=== PATIENT | male | born 1935 | race Caucasian/White ===

== ENCOUNTER 2017-08-11 10:02 | Emergency (ER) | payer MEDICARE ==
[~2017-08-11] VITALS: Ht 175.3 cm; Wt 69.0 kg
[2017-08-11 10:07] VITALS: BP 159/70; PULSE 74; RESP 18; TEMP 98; O2SAT 96
[2017-08-11] MEDS ORDERED: BACT800T5 PO (11:06)
[2017-08-11] MEDS ORDERED: CEPH-460 PO (11:06)
--- NOTE | 2017-08-11 11:07 | PD ---
HPI Chief Complaint: Skin Problem Time Seen by Provider: 10:50 Travel History International Travel<30 days: No Contact w/Intl Traveler<30days: No Traveled to known affect area: No History of Present Illness HPI This is a 81-year-old male with possible wound infection to the right lower extremity. He reports 1 week ago while working in the yard he cut his leg on a branch. He has been providing local wound care to the area. Yesterday he noticed the area had become erythematous and warm. He denies fever chills. No drainage from the site. Symptom severity is mild to moderate. No aggravating or alleviating factors. PFSH Past Medical History Medical History: Denies Significant Hx Respiratory: Yes (WHEEZING) Tetanus Vaccination: Unknown Past Surgical History Surgical History: No Previous Surgery Social History Alcohol Use: Yes (2-3 WINE DAILY) Tobacco Use: No Substance Use: No Allergies-Medications (Allergen,Severity, Reaction): Coded Allergies: No Known Allergies (Unverified , 08/11/17) Reported Meds & Prescriptions Reported Meds & Active Scripts Active No Active Prescriptions or Reported Medications Review of Systems Except as stated in HPI: all other systems reviewed are Neg General / Constitutional: No: Fever Eyes: No: Visual changes HENT: No: Headaches Cardiovascular: No: Chest Pain or Discomfort Respiratory: No: Shortness of Breath Gastrointestinal: No: Abdominal Pain Genitourinary: No: Dysuria Physical Exam Narrative GENERAL: Alert and well-appearing 81-year-old male SKIN: V-shaped flap laceration to the right lower extremity measuring approximately 3 CM. Scab is in place. No drainage. No fluctuance or induration. There is surrounding erythema consistent with cellulitis. HEAD: Normocephalic. EYES: No injection or drainage. NECK: Supple, trachea midline. CARDIOVASCULAR: Regular rate and rhythm RESPIRATORY: Breath sounds equal bilaterally. No accessory muscle use. GASTROINTESTINAL: Abdomen soft, non-tender, nondistended. MUSCULOSKELETAL: No cyanosis, or edema. See skin note above Data Data Last Documented VS Vital Signs Date Time Temp Pulse Resp B/P (MAP) Pulse Ox O2 Delivery O2 Flow Rate FiO2 08/11/17 10:07 98.0 74 18 159/70 (99) 96 MDM Medical Decision Making Medical Screen Exam Complete: Yes Emergency Medical Condition: Yes Interpretation(s) Afebrile. No tachycardia. Differential Diagnosis Cellulitis, abscess, wound infection Narrative Course 81-year-old male here with cellulitis of the right lower extremity. He is well- appearing. Vital signs are stable. Area was marked with a wound pen. He is instructed to return in 2 days for recheck. He is to return prior if he develops new or worsening symptoms. Diagnosis Primary Impression: Cellulitis Qualified Codes: L03.115 - Cellulitis of right lower limb Referrals: Primary Care Physician Additional Instructions: Antibiotics as directed. Follow-up in 2 days for recheck. Return prior if he develop fever, chills, increasing pain or increasing redness of the site. Scripts Cephalexin (Keflex) 500 Mg Cap 500 MG PO Q6H for Infection for 10 Days, #40 CAP 0 Refills Prov: Dian Irby 08/11/17 Sulfamethoxazole-Trimethoprim (Bactrim DS) 800-160 Mg Tab 1 TAB PO BID for Infection, #20 TAB 0 Refills Prov: Dian Irby 08/11/17 Disposition: 01 DISCHARGE HOME Condition: Stable Dain Irby Aug 11, 2017 11:07
== END 2017-08-11 11:24 | disposition home or self-care (01) ==
LOC: PHEFT 10:02
DX: L03.115 Cellulitis of right lower limb (principal); R06.2 Wheezing
CPT/HCPCS: 99283